=== PATIENT | male | born 2005 | race Caucasian/White ===

== ENCOUNTER 2023-06-24 16:05 | Emergency (ER) | payer OTHER ==
[~2023-06-24] VITALS: Ht 182.9 cm; Wt 125.8 kg
[2023-06-24 19:01] VITALS: BP 144/113; PULSE 75; RESP 16; TEMP 98.6; O2SAT 98
[2023-06-24] MEDS ORDERED: IBUP-1456 PO (20:33)
[2023-06-24] MEDS ORDERED: CEPH500C PO (20:33)
== END 2023-06-24 20:56 | disposition home or self-care (01) ==
LOC: ER 16:05
DX: S61.211A Laceration without foreign body of left index finger without damage to nail, initial encounter (principal); W26.0XXA Contact with knife, initial encounter; Y93.89 Activity, other specified; Y92.89 Other specified places as the place of occurrence of the external cause; Y99.8 Other external cause status
CPT/HCPCS: 12001